=== PATIENT | male | born 1975 | race Hispanic/Latino ===

== ENCOUNTER 2017-03-31 09:44 | Emergency (ER) | payer BC, OTHER ==
[2017-03-31] MEDS ORDERED: Ibuprofen 800 MG TAB ONE (10:25)
--- NOTE | 2017-03-31 11:27 | RAD ---
TWO VIEW CHEST SERIES: COMPARISON: 01/12/12. INDICATION: Cough. FINDINGS: No evidence of consolidation, effusion, or discrete pneumothorax. Cardiac silhouette is within antione l limits. Cardiac silhouette is within normal limits of size. Mild osseous degenerative change is p resent. IMPRESSION: No focal consolidation. POS: [facility]
--- NOTE | 2017-05-05 17:33 | EKG ---
Test Reason : CP Blood Pressure : / mmHG Vent. Rate : 085 BPM Atrial Rate : 085 BPM P-R Int : 174 ms QRS Dur : 098 ms QT Int : 338 ms P-R-T Axes : 028 019 006 degrees QTc Int : 402 ms Normal sinus rhythm Possible Inferior infarct , age undetermined Abnormal ECG Confirmed by DESIREE IZAGUIRRE ([id number]), marketing editor PETER SHORT ([id number]) on 05/05/2017 5:33:04 PM Referred By: Confirmed By:DESIREE IZAGUIRRE
== END 2017-03-31 11:30 | disposition home or self-care (01) ==
LOC: ERS 09:44
DX: J11.1 Influenza due to unidentified influenza virus with other respiratory manifestations (principal); E11.9 Type 2 diabetes mellitus without complications; I10 Essential (primary) hypertension; J45.909 Unspecified asthma, uncomplicated; Z79.84 Long term (current) use of oral hypoglycemic drugs; Z79.899 Other long term (current) drug therapy
CPT/HCPCS: 71046; 87804; 93005

== ENCOUNTER 2018-06-03 23:20 | Emergency (ER) | payer BC ==
[2018-06-04 00:40] LABS: ALT (SGPT) 80 U/L (8-55); AST (SGOT) 39 U/L (5-34); Albumin 4.7 g/dL (3.5-5.0); Alkaline Phosphatase 68 U/L (40-150); Anion Gap 16 mmol/L (10-20); BUN (Urea Nitrogen) 18 mg/dL (8.9-20.6); Bilirubin, Total 0.4 mg/dL (0.2-1.2); Calc. Creatinine Clearance 0 mL/min (70-130); Calcium 10.3 mg/dL (7.8-10.44); Carbon Dioxide 25 mmol/L (22-29); Chloride 99 mmol/L (98-107); Estimated GFR-MDRD 77; Globulin 3.2 g/dL (2.4-3.5); Glucose 108 mg/dL (70-105); Potassium 3.7 mmol/L (3.5-5.1); Protein, Total 7.9 g/dL (6.0-8.3); Sodium 136 mmol/L (136-145)
[2018-06-04 00:41] LABS: Band 2 % (5-11); Hemoglobin 14.9 g/dL (14.0-18.0); Lymphocytes 50 % (21-51); MDiff Complete? YES; Mean Corpuscular HGB CONC 33.4 g/dL (32.0-36.0); Mean Corpuscular Hemoglobin 31.2 pg (27.0-31.0); Mean Corpuscular Volume 93.2 fL (78.0-98.0); Monocytes 13 % (0-10); Neutrophil 35 % (42-75); Platelet Count 325 thou/uL (130-400); Platelet Morphology Comment Appears Adequate; Red Blood Cell (RBC) Count 4.79 mill/uL (4.70-6.10)
[2018-06-04] MEDS ORDERED: Lorazepam 2 MG/ML VIAL ONE (05:19)
[2018-06-04] MEDS ORDERED: Ketorolac Tromethamine 30 MG/ML VIAL ONE (05:19)
--- NOTE | 2018-06-04 08:03 | ULT ---
DOPPLER VENOUS ULTRASOUND OF THE LEFT LOWER EXTREMITY: Date: 06/04/18 INDICATION: Left calf pain for 1 day. TECHNIQUE: Casey scale, color Doppler, and vascular duplex with spectral analysis was performed of the deep venou s structures of the left lower extremity. The common femoral vein, superficial femoral vein, proximal greater saphenous vein, proximal greater profunda vein, popliteal, and posterior tibial veins were a ssessed. FINDINGS: Normal compression, flow, and augmentation was seen within the deep venous structures on the left low er extremity. IMPRESSION: No evidence of deep venous thrombosis within the left lower extremity. POS: [facility]
--- NOTE | 2018-06-08 09:27 | EKG ---
Test Reason : Blood Pressure : / mmHG Vent. Rate : 079 BPM Atrial Rate : 079 BPM P-R Int : 184 ms QRS Dur : 100 ms QT Int : 356 ms P-R-T Axes : 030 012 005 degrees QTc Int : 408 ms Normal sinus rhythm Minimal voltage criteria for LVH, may be normal variant Otherwise normal EKG Confirmed by ALIVIA TOWNSEND ([id number]), assignment editor GALLITO GLYNN ([id number]) on 06/08/2018 9:27:37 AM Referred By: Confirmed By:ALIVIA TOWNSEND
== END 2018-06-04 07:28 | disposition home or self-care (01) ==
LOC: ERS 23:20
DX: E86.0 Dehydration (principal); R25.2 Cramp and spasm; I10 Essential (primary) hypertension; E11.9 Type 2 diabetes mellitus without complications; J45.909 Unspecified asthma, uncomplicated; Z79.84 Long term (current) use of oral hypoglycemic drugs; Z79.899 Other long term (current) drug therapy
CPT/HCPCS: 36415; 80053; 82550; 83690; 83735; 84484; 85025; 85379; 93005; 96361; 96374; 96375; J1885; J2060

== ENCOUNTER 2018-09-30 16:15 | Emergency (ER) | payer BC ==
--- NOTE | 2018-09-30 16:56 | RAD ---
SINGLE VIEW OF THE CHEST: Comparison: 03-31-17 History: Syncope with loss of consciousness. FINDINGS: Single view of the chest shows a normal sized cardiomediastinal silhouette. There is no evidence of c onsolidation, mass, or pleural effusion. The bones are unremarkable. IMPRESSION: No evidence of acute cardiopulmonary disease. POS: [facility]
--- NOTE | 2018-09-30 16:58 | CT ---
CT OF HEAD NONCONTRAST: Indication: Syncope. FINDINGS: There is no ventriculomegaly, mass effect, midline shift, or acute intracranial hemorrhage. A moderat e sized retention cyst is partially visualized within the left maxillary sinus. IMPRESSION: No acute intracranial abnormalities. POS: [facility]
[2018-09-30 17:01] LABS: #Basophils 0.1 thou/uL (0.0-0.2); #Eosinphils 0.1 thou/uL (0.0-0.7); #Lymphocytes 1.4 thou/uL (1.20-3.40); #Monocytes 0.7 thou/uL (0.11-0.59); #Neutrophils 6.9 thou/uL (1.40-6.50); %Basophils 0.6 % (0.0-1.0); %Eosinophils 0.7 % (0.0-10.0); %Monocytes 7.3 % (0.0-10.0); %Neutrophils 76.4 % (42.0-75.0); Mean Corpuscular Hemoglobin 31.5 pg (27.0-31.0); Mean Corpuscular Volume 92.7 fL (78.0-98.0); Mean Platelet Volume 7.7 fL (7.4-10.4); Platelet Count 276 thou/uL (130-400); Red Blood Cell (RBC) Count 4.77 mill/uL (4.70-6.10)
[2018-09-30 17:30] LABS: ALT (SGPT) 60 U/L (8-55); AST (SGOT) 38 U/L (5-34); Albumin 4.7 g/dL (3.5-5.0); Alkaline Phosphatase 54 U/L (40-150); Anion Gap 13 mmol/L (10-20); BUN (Urea Nitrogen) 10 mg/dL (8.9-20.6); Bilirubin, Total 0.4 mg/dL (0.2-1.2); CK (CPK) 290 U/L (30-200); Calc. Creatinine Clearance 0 mL/min (70-130); Calcium 9.8 mg/dL (7.8-10.44); Carbon Dioxide 25 mmol/L (22-29); Chloride 103 mmol/L (98-107); Estimated GFR-MDRD 88; Globulin 3.1 g/dL (2.4-3.5); Glucose 127 mg/dL (70-105); Lipase 28 U/L (8-78); Potassium 3.4 mmol/L (3.5-5.1); Protein, Total 7.8 g/dL (6.0-8.3); Sodium 138 mmol/L (136-145)
[2018-09-30] MEDS ORDERED: Ibuprofen 200 MG TAB ONE (18:13)
== END 2018-09-30 18:20 | disposition home or self-care (01) ==
LOC: ERS 16:15
DX: R55 Syncope and collapse (principal); I10 Essential (primary) hypertension; R51 Headache; E11.9 Type 2 diabetes mellitus without complications
CPT/HCPCS: 36415; 36416; 70450; 71045; 80053; 82550; 83690; 83880; 84484; 85025; 85379; 93005; 96360; 96361

== ENCOUNTER 2022-11-25 03:11 | Emergency (ER) | payer BC ==
[2022-11-25] MEDS ORDERED: Acetaminophen 500 MG TAB ONE (03:38)
[2022-11-25] MEDS ORDERED: Ketorolac Tromethamine 30 MG/ML VIAL ONE (05:11)
== END 2022-11-25 05:35 | disposition home or self-care (01) ==
LOC: ERS 03:11
DX: S20.211A Contusion of right front wall of thorax, initial encounter (principal); E11.9 Type 2 diabetes mellitus without complications; I10 Essential (primary) hypertension; W18.30XA Fall on same level, unspecified, initial encounter; Y92.091 Bathroom in other non-institutional residence as the place of occurrence of the external cause; Z79.84 Long term (current) use of oral hypoglycemic drugs; Z79.899 Other long term (current) drug therapy
CPT/HCPCS: 71045; 94760; 96372; J1885